=== PATIENT | female | born 1995 | race Caucasian/White ===

== ENCOUNTER 2017-03-25 20:13 | Inpatient (IN) | payer OTHER ==
[2017-03-25 20:36] VITALS: BMI 24.2
[2017-03-25] MEDS ORDERED: PITOCIN IVP ONE (20:45)
[2017-03-25] MEDS ORDERED: D5LR 1L W PITOCIN 10 UNITS/L 10 UNITS/1,000 ML BAG IV PRN (20:45)
[2017-03-25] MEDS ORDERED: REGLAN INJ 10 MG VIAL IVP PRN (20:45)
[2017-03-25] MEDS ORDERED: PHENERGAN INJ 25 MG IV PRN (20:45)
[2017-03-25] MEDS ORDERED: D5 1/2 NS 1000 ML 1,000 ML IV SCH (21:00)
[2017-03-25 22:01] LABS: BASOPHILS # (AUTO) 0.1 X10^3/uL (0.0-0.1); BASOPHILS % (AUTO) 0.6 % (0.2-1.0); EOSINOPHILS # (AUTO) 0.1 x10^3/uL (0.0-0.2); EOSINOPHILS % (AUTO) 0.6 % (0.9-2.9); HEMATOCRIT 33.7 % (36.0-47.0); HEMOGLOBIN 11.5 g/dL (12.0-16.0); LYMPHOCYTES # (AUTO) 2.7 X10^3/uL (1.3-2.9); LYMPHOCYTES % (AUTO) 23.7 % (21.0-51.0); MEAN CORPUSCULAR HGB CONC 34.1 g/dL (33.0-35.0); MEAN CORPUSCULAR VOLUME 85.1 fL (80.0-100.0); MEAN PLATELET VOLUME 7.9 fL (7.4-11.0); MONOCYTES # (AUTO) 0.5 x10^3/uL (0.3-0.8); MONOCYTES % (AUTO) 4.4 % (0.0-13.0); NEUTROPHILS # (AUTO) 8.2 x10^3/uL (2.2-4.8); NEUTROPHILS % (AUTO) 70.7 % (42.0-75.0); PLATELET COUNT 341 X10^3/uL (150.0-450.0); RED BLOOD COUNT 3.96 X10^6/uL (3.5-5.4); RED CELL DISTRIBUTION WIDTH 14.3 % (11.6-16.5); WHITE BLOOD COUNT 11.6 X10^3/uL (3.6-10.0)
[2017-03-25 22:08] LABS: BLOOD UREA NITROGEN 8 mg/dL (7-18); CALCIUM 8.6 mg/dL (8.5-10.1); CARBON DIOXIDE 25.1 mmol/L (21-32); CHLORIDE 103 mmol/L (98-107); CREATININE 0.61 mg/dL (0.55-1.02); SODIUM 138 mmol/L (136-145); eGFR BLACK RACES > 60 (>60); eGFR NON BLACK RACES > 60 (>60)
[2017-03-25] MEDS ORDERED: NUBAIN INJ 10 ONE (22:17)
[2017-03-25] MEDS ORDERED: PHENERGAN INJ 25 MG ONE (22:17)
[2017-03-25] MEDS: NUBAIN INJ 200 MG VIAL MULTIDOSE IVP PRN (22:22)
[2017-03-25] MEDS ORDERED: D5 1/2 NS 1L W PITOCIN 20 UNITS/L 20 UNITS/1,000 ML BAG IV ONE (23:49)
[2017-03-25] MEDS ORDERED: PITOCIN ONE (23:49)
[2017-03-26] MEDS: NUBAIN INJ 200 MG VIAL MULTIDOSE IVP PRN (00:26)
[2017-03-26] MEDS: NUBAIN INJ 10 ONE ×2 (00:26→00:27)
[2017-03-26] MEDS ORDERED: PHENERGAN INJ 25 MG IV PRN ×2 (02:44→03:18)
[2017-03-26] MEDS ORDERED: MOTRIN TAB 800 MG PO PRN (02:44)
--- NOTE | 2017-03-26 02:44 | DR.OB ---
OB Quick Note - Assessment/Plan Assessment/Plan: L&D 03/26/17 at 2:30am Patient complete and pushing. Head delivered over intact perineum. No nuchal cord. Nose and mouth bulb suctioned. Body delivered over intact perineum. Cord clamped x 2 and cut. handed to attendant. Cord sent for gases. Placenta delivered spontaneously / intact / 3 vessel cord. No CVX / vaginal / perineal tears. Viable female infant, VTX/OA, wt=5'10" and 9/9, stable to NBN. Mother stable to RR. [id number].
[2017-03-26] MEDS ORDERED: D5 1/2 NS 1000 ML 1,000 ML with PITOCIN 20 UNITS IV SCH ×2 (03:00)
[2017-03-26] MEDS ORDERED: AMBIEN PO PRN (03:18)
[2017-03-26] MEDS ORDERED: REGLAN INJ 10 MG VIAL IVP PRN (03:18)
[2017-03-26] MEDS ORDERED: DERMOPLAST SPRAY TOP PRN (03:18)
[2017-03-26] MEDS ORDERED: ADACEL TDaP IM ONE (03:18)
[2017-03-26] MEDS ORDERED: MILK OF MAGNESIA PO PRN (03:18)
[2017-03-26] MEDS: D5 1/2 NS 1000 ML 1,000 ML with PITOCIN 20 UNITS IV SCH ×4 (03:20→13:47)
[2017-03-26] MEDS: MOTRIN TAB 800 MG PO PRN ×2 (04:12→15:02)
[2017-03-26 06:02] LABS: HEMATOCRIT 33.1 % (36.0-47.0); HEMOGLOBIN 11.2 g/dL (12.0-16.0)
[2017-03-26] MEDS: PRENATAL PLUS PO SCH (09:30)
[2017-03-26] MEDS: CELEXA PO SCH (09:30)
[2017-03-26] MEDS: ZANTAC PO SCH ×2 (09:31→20:07)
[2017-03-26] MEDS: PERCOCET TAB 5/325 MG PO PRN ×2 (09:31→20:07)
[2017-03-27] MEDS: PRENATAL PLUS PO SCH (09:14)
[2017-03-27] MEDS: ZANTAC PO SCH (09:14)
[2017-03-27] MEDS: CELEXA PO SCH (09:14)
[2017-03-27] MEDS: MOTRIN TAB 800 MG PO PRN (09:15)
[2017-03-27] MEDS ORDERED: ADACEL TDaP IM ONE (09:58)
[2017-03-27 12:17] VITALS: BP 109/65
== END 2017-03-27 15:45 | disposition home or self-care (01) | DRG 775 ==
LOC: ER 20:24 → LD 20:45 → MED/SURG 03-26 03:22
PROVIDERS: ADMIT Specialist; ATTEND Specialist
PROC: 10E0XZZ Delivery of Products of Conception, External Approach (ICD-10-PCS; principal; 2017-03-25)
PROC: 3E0234Z Introduction of Serum, Toxoid and Vaccine into Muscle, Percutaneous Approach (ICD-10-PCS; 2017-03-27)
DX: O99.343 Other mental disorders complicating pregnancy, third trimester (principal); Z37.0 Single live birth; Z3A.37 37 weeks gestation of pregnancy; F12.980 Cannabis use, unspecified with anxiety disorder
CPT/HCPCS: 36415; 59409; 80048; 80307; 83020; 85014; 85018; 85025; 86592; 86850; 86900; 86901; 99284; A4216; A4222; S0197; G0434; J2300; J2550; J2590; J7042